=== PATIENT | female | born 1965 | race Caucasian/White ===

== ENCOUNTER 2017-03-28 14:42 | Emergency (ER) | payer MEDICARE, OTHER ==
[~2017-03-28 14:42] MED LIST: AUGMENTIN 875-1 EACH PO; CHILDRENS CHEWA81 MG PO; COLACE100 MG PO; ELAVIL10 MG PO; GLUCOPHAGE500 MG PO; HCTZ25 MG PO; NEURONTIN800 MG PO; NICODERM 21MG PA1 EA TD; NITROGLYCERIN0.4 MG SL; NORVASC10 MG PO; OMEPRAZOLE20 MG PO; PERCOCET 10-321 EACH PO; SYMBICORT 80-10.2 GM INH; TOPROL XL25 MG PO; VALIUM5 MG PO; ZANAFLEX4 M1 PO; ZESTRIL20 M1 PO; ZOCOR10 MG PO
== END 2017-03-28 15:04 | disposition home or self-care (01) ==
LOC: ER 14:42
DX: M24.112 Other articular cartilage disorders, left shoulder (principal); M25.512 Pain in left shoulder; Z88.5 Allergy status to narcotic agent; Z79.899 Other long term (current) drug therapy; Z79.82 Long term (current) use of aspirin; Z79.1 Long term (current) use of non-steroidal anti-inflammatories (NSAID)
CPT/HCPCS: 99282